=== PATIENT | male | born 1995 | race Caucasian/White ===

== ENCOUNTER 2024-10-11 11:59 | Outpatient (REF) | payer MEDICAID, SELFPAY ==
--- NOTE | ~2024-10-11 | XR_ITS ---
EXAMINATION: XR CHEST 2 VIEWS HISTORY: SOB COMPARISON: Comparison is made with the prior examination dated 10/13/2019. FINDINGS: PA and lateral views of the chest are submitted. The lungs are expanded and clear. There is no pleural effusion, pneumothorax, or pulmonary vascular congestion. The heart is normal in size. The bones are intact. XR/XR chest 2V IMPRESSION: No acute cardiopulmonary abnormality. Electronically signed by: Mukund Cheatham MD 10/11/2024 12:42 PM [place]
== END 2024-10-11 12:00 | disposition home or self-care (01) ==
LOC: HO.HHCX 11:59
PROVIDERS: Visit Provider Emergency Medicine
DX: R06.02 Shortness of breath (principal); R03.0 Elevated blood-pressure reading, without diagnosis of hypertension
CPT/HCPCS: 71046

== ENCOUNTER → 2024-10-11 12:02 | Outpatient (BNV) | payer SELFPAY | PROVIDERS: Visit Provider Radiology Diagnostic Radiology | DX: R06.02 Shortness of breath (principal) | CPT/HCPCS: 71046 ==

== ENCOUNTER 2024-10-11 12:19 | Outpatient (REF) | payer SELFPAY ==
[2024-10-11 13:31] LABS: MANUAL DIFF FLAG NO
[2024-10-11 13:34] LABS: Basophils Percent Auto 0.3 % (0-2); Eosinophils Percent Auto 0.1 % (0-4); Hematocrit 47.8 % (42.0-52.0); Hemoglobin 15.9 g/dl (14.0-18.0); Imm Gran Abs Auto 0.06 X10*3/uL (0.00-0.03); Imm Gran Pct Auto 0.4 % (0.0-0.4); Lymphocytes Absolute Auto 1.6 X10*3/uL (1.2-4.9); Lymphocytes Percent Auto 11.4 % (20-40); Mean Corpuscular HGB Conc 33.3 g/dl (31.0-36.0); Mean Corpuscular Hemoglobin 29.1 pg (27.0-33.0); Mean Corpuscular Volume 87.5 fL (80.0-98.0); Mean Platelet Volume 10.5 fL (9.4-12.4); Monocytes Absolute Auto 0.7 X10*3/uL (0.1-1.2); Monocytes Percent Auto 5.1 % (2-11); Neutrophils Absolute Auto 11.4 x10*3/uL (2.0-8.3); Neutrophils Percent Auto 82.7 % (45-73); Platelet Count 351 X10*3/uL (160-400); Red Blood Count 5.46 X10*6/uL (4.60-5.80); Red Cell Distribution Width 12.8 % (11.0-16.0); White Blood Count 13.8 X10*3/uL (4.8-10.8)
[2024-10-11 13:45] LABS: Estimated Average Glucose 117 mg/dL; Hemoglobin A1C 154.8354 umol/L; Hemoglobin A1c % 5.7 % (<6.0); Total Hemoglobin (HGBA1C) 4036.9472 umol/L
[2024-10-11 14:06] LABS: Alanine Aminotransferase 20 U/L (0-40); Albumin Level 4.9 g/dL (3.5-5.0); Alkaline Phosphatase 102 U/L (39-117); Anion Gap 12 (12-20); Aspartate Amino Transferase 27 U/L (5-37); Bilirubin Total 0.8 mg/dL (0.0-1.0); Blood Urea Nitrogen 14 mg/dL (9-16); Calcium 9.9 mg/dL (8.4-10.2); Carbon Dioxide 25 mmol/L (22-29); Chloride 104 mmol/L (96-108); Estimated Glomerular Filt Rate > 60; Glucose Random 96 mg/dL (60-115); Potassium 3.8 mmol/L (3.3-5.1); Sodium 137 mmol/L (135-145); Total Protein 9.4 g/dL (6.5-8.0)
[2024-10-11 14:13] LABS: Vitamin B12 380 pg/mL (200-900)
[2024-10-11 14:24] LABS: TSH reflex Free T4 1.15 uIU/mL (0.32-4.0)
--- OUTSIDE RECORDS SUMMARY | 2024-10-11 17:05 | XMS_ITS | Encounter Summary ---
Author Organization [email or web address] Address [address] [facility] [address] [place] [address] Care Team Providers Care Insurance Broker Name Role Phone Santa Pablo [facility] Primary Care Provider [phone] Reason for Visit * Reason Comments Anxiety Shortness of Breath Encounter Details Date Type Department Care Team ([facility] st Contact Info) Description 10/11/2024 9:40 AM EST Office Visit [facility] [address] [place] [address] Alfred Magdaleno MD [address] [place] [address] Anxiety (Primary Dx); Dyspnea, unspecified type; Elevated blood pressure reading in office without diagnosis of hypertension Social History Tobacco Use Types Packs/Day Years Used Date Smoking Tobacco: Some Days Cigarettes Smokeless Tobacco: Never Tobacco Cessation:Ready to Q uit: Not Asked Sex and Gender Information Value Date Recorded Sex Assigned at Male 07/15/2022 10:40 AM EDT Legal Sex Male 10:40 AM EDT Gender Identity Choose not to disclose 10:40 AM EDT Sexual Orientation Straight 07/15/2022 10 :40 AM EDT documented as of this encounter Last Filed Vital Signs Vital Sign Reading Time Taken Comments Blood Pressure 155/85 10/11/2024 11:18 AM EST Pulse 62 10/11/2024 9:56 AM EST Temperature 36.4 ??C (97.6 ??F) 10/11/2024 9:56 AM ES T Respiratory Rate 21 10/11/2024 9:56 AM EST Oxygen Saturation 97% 10/11/2024 9:56 AM EST Inhaled Oxygen Concentration - - Weight 121 kg (266 lb 12.8 oz) 10/11/2024 9:56 A M EST Height - - Body Mass Index 35.03 03/20/2022 12:07 AM EDT documented in this encounter Progress Notes * Alfred Magdaleno MD - 10/11/2024 9:40 AM ESTAssociated Order(s): ECG 12 lead Post-Procedure Diagnose(s): Dyspnea, unspecified type; Elevated blood pressure reading in office without diagnosis of hypertension Subjective Patient ID: Shashi Hamlin is a 29 y.o. adult. HPI Shashi was last seen at [facility] 02/04/2022. He came to [facility] today because of 1 year h/o SOB at rest and on exertion, anxiety. No fever, cough, chest pain, n/v/d. Also wants blood glucose checked. Lives with siste here and also stays in senior living in [facility]. Not employed. Smokes 1 cigarette/day several days/week. Quit smoking weed. The following portions of the chart were reviewed this encounter and updated as appropriate: Review of Systems Constitutional: Negative for fever. Respiratory: Positive for shortness of breath. Cardiovascular: Negative for chest pain. Gastrointestinal: Negative for abdominal pain. Skin: Negative for rash. Neurological: Negative for headaches. Psychiatric/Behavioral: The patient is nervous/anxious. Objective Physical Exam Constitutional: Appearance: Normal appearance. HENT: Right Ear: Tympanic membrane, ear canal and external ear normal. Left Ear: Tympanic membrane, ear canal and external ear normal. Nose: Nose normal. Mouth/Throat: Mouth: Mucous membranes are moist. Pharynx: Oropharynx is clear. Eyes: Conjunctiva/sclera: Conjunctivae normal. Pupils: Pupils are equal, round, and reactive to light. Cardiovascular: Rate and Rhythm: Normal rate and regular rhythm. Heart sounds: No murmur heard. Pulmonary: Effort: Pulmonary effort is normal. Breath sounds: Normal breath sounds. Musculoskeletal: General: Normal range of motion. Cervical back: No tenderness. Skin: Findings: No rash. Neurological: Mental Status: Shashi is alert. Gait: Gait is intact. Psychiatric: Mood and Affect: Mood normal. Behavior: Behavior normal. ECG 12 lead Date/Time: 10/11/2024 11:28 AM Performed by: Alfred Magdaleno MD Authorized by: Alfred Magdaleno MD Previous ECG: Previous ECG: Unavailable Interpretation: Interpretation: normal Rate: ECG rate: 86 ECG rate assessment: normal Rhythm: Rhythm: sinus rhythm QRS: QRS axis: Normal QRS intervals: Normal QRS conduction: normal ST segments: ST segments: Normal T waves: T waves: normal Q waves: Abnormal Q-waves: not present Assessment/Plan Diagnoses and all orders for this visit: Sydnee Castillo from [facility] met with Shashi in exam room. She will arrange counseling. I prescribed hydroxyzine. Rtc if not improving. Dyspnea, unspecified type EKG normal. ?related to anxiety. CXR ordered. Will call pt with report. Rtc if not improving. Elevated blood pressure reading in office without diagnosis of hypertension Lab tests ordered. Will call pt with results. Prescribed home BP monitor. Reviewed BP parameters, given written BP log that includes BP parameters, to keep daily. Call if BP readings are elevated. Other orders - Blood Pressure kit; 1 each 2 times daily. - hydrOXYzine pamoate (Vistaril) 50 MG capsule; Take 1 capsule (50 mg) by mouth every 6 (six) hoursif needed for itching. documented in this encounter Plan of Treatment Upcoming Encounters Date Type Department Care Team (Late st Contact Info) Description 01/07/2025 10:30 AM EDT Office Visit [facility] [address], [place] [phone] [facility] [address] [place] [address] documented as of this encounter Procedures Procedure Name Priority Date/Time Associated Diagnosis Comments TSH W/REFLEX TO FT4 Routine 10/11/2024 1 2:22 PM EST Elevated blood pressure reading in office without diagnosis of hypertension CBC WITH AUTO DIFFERENTIAL Routine 10/11/2024 12:22 PM EST Elevated blood pressure reading in office without diagnosis of hypertension HEMOGLOBIN A1C Routine 10/11/2024 12:22 PM EST Elevated blood pressure reading in office without diagnosis of hypertension VITAMIN B12 Routine 10/11/2024 12:22 PM EST Elevated blood pressure reading in office without diagnosis of hypertension COMPREHENSIVE METABOLIC PANEL Routine 10/11/2024 12:22 PM EST Elevated blood pressure reading in office without diagnosis of hypertension XR CHEST 2 VIEWS Routine 10/11/2024 12:0 2 PM EST Elevated blood pressure reading in office without diagnosis of hypertension documented in this encounter Results * Vitamin B12 (10/11/2024 12:22 PM EST) Pathologist [facility] Vitamin B12 380 200 - 900 pg/mL [facility] Comment:NORMAL 200-900 PG/ML INDETERMINATE 160-199 PG/ML DEFICIENT < 160 PG/ML Blood Venous blood specimen / Unknown 10/11/2024 12:22 PM EST 10/11/2024 1:28 PM EST us Alfred Magdaleno MD LAB BLOOD ORDERABLES Final Resul t Performing Organization Address [facility]/ZIP Co de Phone Number [facility] [address] [place] [phone] * TSH with Reflex to Free T4 (10/11/2024 12:22 PM EST) Pathologist [facility] TSH reflex Free T4 1.15 0.32 - 4.0 uIU/mL [facility] Blood Venous blood specimen / Unknown 10/11/2024 12:22 PM EST 10/11/2024 1:28 PM EST us Alfred Magdaleno MD LAB BLOOD ORDERABLES Final Resul t Performing Organization Address City/[facility]/ZIP Co de Phone Number [facility] [address] [place] [phone] * Hemoglobin A1c (10/11/2024 12:22 PM EST) Pathologist [facility] Hemoglobin A1c 5.7 <6.0 % [facility] Comment:Hemoglobin A1C Refer ence Range Adults: 4.8 - 6.0 % Non diabetic: < 6.0 % Goal: < 7.0 %Additional Action Suggested: > 8.0 %Note: Hemoglobin A1c results are invalid for patients with abnormal amounts of HbF. Blood transfusions may impact the HbA1c concentration in the patient sample. Estimated Average Glucose 117 mg/dL [facility] Comment:eAG = Estimated ave rage glucose which is %A1C expressed asaverage glucose, using the formula of the [id number] Glucose study (ADAG), Diabetes Care, Vol.31,#8,Apr. 2007 Blood Venous blood specimen / Unknown 10/11/2024 12:22 PM EST 10/11/2024 1:28 PM EST us Alfred Magdaleno MD LAB BLOOD ORDERABLES Final Resul t [facility] [address] [place] [phone] * (ABNORMAL) Comprehensive Metabolic Panel (10/11/2024 12:22 PM EST) Sodium 137 135 - 145 mmol/L [facility] Potassium 3.8 3.3 - 5.1 mmol/L [facility] Chloride 104 96 - 108 mmol/L [facility] Carbon Dioxide 25 22 - 29 mmol/L [facility] Anion Gap 12 12 - 20 [facility] Urea Nitrogen (BUN) 14 9 - 16 mg/dL [facility] Creatinine, Serum 1.04 0.5 - 1.4 mg/dL [facility] Estimated Glomerular Filt Rate >60 [facility] Comment:Chronic Kidney Disea se: Estimated GFR < 60 mL/min/[id number] Kidney Disease: Estimated GFR < 15 mL/min/1.73m2 Glucose 96 60 - 115 mg/dL [facility] Calcium 9.9 8.4 - 10.2 mg/dL [facility] Bilirubin, Total 0.8 0.0 - 1.0 mg/dL [facility] Aspartate Amino Transferase 27 5 - 37 U/L [facility] Alanine Aminotransferase 20 0 - 40 U/L [facility] Total Protein 9.4(H) 6.5 - 8.0 g/dL [facility] Albumin Level 4.9 3.5 - 5.0 g/dL [facility] Alkaline Phosphatase 102 39 - 117 U/L [facility] Blood Venous blood specimen / Unknown 10/11/2024 12:22 PM EST 10/11/2024 1:28 PM EST us Alfred Magdaleno MD LAB BLOOD ORDERABLES Final Resul t [facility] [address] [place] [phone] * (ABNORMAL) CBC auto differential (10/11/2024 12:22 PM EST) White Blood Count 13.8(H) 4.8 - 10.8 X10*3/uL [facility] Red Blood Count 5.46 4.60 - 5.80 X10*6/uL [facility] Hemoglobin 15.9 14.0 - 18.0 g/dl [facility] Hematocrit 47.8 42.0 - 52.0 % [facility] Mean Corpuscular Volume 87.5 80.0 - 98.0 fL [facility] Mean Corpuscular Hemoglobin 29.1 27.0 - 33.0 pg [facility] Mean Corpuscular HGB Conc 33.3 31.0 - 36.0 g/dl [facility] Red Cell Distribution Width 12.8 11.0 - 16.0 % [facility] Platelet Count 351 160 - 400 X10*3/uL [facility] Mean Platelet Volume 10.5 9.4 - 12.4 fL [facility] Neutrophils Percent Auto 82.7(H) 45 - 73 % [facility] Imm Gran Pct Auto 0.4 0.0 - 0.4 % [facility] Lymphocytes Percent Auto 11.4(L) 20 - 40 % [facility] Monocytes Percent Auto 5.1 2 - 11 % [facility] Eosinophils Percent Auto 0.1 0 - 4 % [facility] Basophils Percent Auto 0.3 0 - 2 % [facility] NRBC Pct Auto 0.0 0.0 - 0.2 /100WBC [facility] Neutrophils Absolute Auto 11.4(H) 2.0 - 8.3 x10*3/uL [facility] Imm Gran Abs Auto 0.06(H) 0.00 - 0.03 X10*3/uL [facility] Lymphocytes Absolute Auto 1.6 1.2 - 4.9 X10*3/uL [facility] Monocytes Absolute Auto 0.7 0.1 - 1.2 X10*3/uL [facility] Eosinophils Absolute Auto 0.0 0.0 - 0.4 X10*3/uL [facility] Basophils Absolute Auto 0.0 0.0 - 0.2 X10*3/uL [facility] NRBC Abs Auto 0.000 0.0 - 0.012 X10*3/uL [facility] Blood Venous blood specimen / Unknown 10/11/2024 12:22 PM EST 10/11/2024 1:28 PM EST us Alfred Magdaleno MD LAB BLOOD ORDERABLES Final Resul t [facility] [address] [place] [phone] * XR Chest 2 Views (10/11/2024 12:02 PM EST) Anatomical Region Laterality Modality Chest Radiographic Allison ging 10/11/2024 12:0 2 PM EST Narrative 10/11/2024 12:45 PM EST ?[facility] ?[address] ?[place] [address] ?XRay Report ? Signed ? Patient: Boubacar Gaona,Shashi ?MR#: ?? [id number] ? : 1995 ?Acct:[id number] ? Age/Sex: 29 / M ?ADM Date: 01/27/25 ? Loc: HO.HHCX ? Attending Dr: Alfred Magdaleno MD ? Ordering Physician: ALFRED MAGDALENO MD ?? Date of Service: 10/11/24 ?? Procedure(s): XR chest 2V ?? Accession Number(s): [id number] ? cc: ALFRED MAGDALENO MD ? EXAMINATION: ??XR CHEST 2 VIEWS ? HISTORY: SOB ? COMPARISON: Comparison is made with the prior examination dated ?? 10/13/2019. ? FINDINGS: ??PA and lateral views of the chest are submitted. The lungs ?? are expanded and clear. ??There is no pleural effusion, pneumothorax, or ?? pulmonary vascular congestion. ??The heart is normal in size. ??The bones ?? are intact. ? XR/XR chest 2V ?? IMPRESSION: ?? No acute cardiopulmonary abnormality. ? Electronically signed by: ??Mukund Cheatham MD ??10/11/2024 12:42 PM EST ?? RP ? Dictated By: ?Mukund Cheatham MD ? Signed By: ?<Electronically signed by Mukund Cheatham MD in OV> ?10/11/24 1242 ? DD/ 1202 ? TD/TT: 10/11/24 1215 ? Research Assistant Professor: ? Procedure Note Malvin, Image - 10/11/[address] [address] XRay Report Signed Patient: Adolph Blackman#: [id number] : 1995Acct:[id number] Age/Sex: 29 / MADM Date: 10/11/24 Loc: HO.HHCX Attending Dr: Alfred Magdaleno MD Ordering Physician: ALFRED MAGDALENO MD Date of Service: 10/11/24 Procedure(s): XR chest 2V Accession Number(s): [id number] cc: ALFRED MAGDALENO MD EXAMINATION: XR CHEST 2 VIEWS HISTORY: SOB COMPARISON: Comparison is made with the prior examination dated 10/13/2019. FINDINGS: PA and lateral views of the chest are submitted. The lungs are expanded and clear. There is no pleural effusion, pneumothorax, or pulmonary vascular congestion. The heart is normal in size. The bones are intact. XR/XR chest 2V IMPRESSION: No acute cardiopulmonary abnormality. Electronically signed by: Mukund Cheatham MD 10/11/2024 12:42 PM [facility] Dictated By: Mukund Cheatham MD Signed By: <Electronically signed by Mukund Cheatham MD in OV> 10/11/24 1242 DD/ 1202 TD/TT: 10/11/24 1215 Research Assistant Professor: Alfred Magdaleno MD IMG XR PROCEDURES Final Result documented in this encounter Visit Diagnoses Diagnosis Anxiety- Primary Anxiety state, unspecified Dyspnea, unspecified type Elevated blood pressure reading in office without diagnosis of hypertension documented in this encounter Care Teams Insurance Broker Relationship Specialty Start Date End Date Santa Pablo FNP [address] [place] [phone] PCP - General Family Medicine 03/20/22 documented as of this encounter
--- OUTSIDE RECORDS SUMMARY | 2024-10-11 17:05 | XMS_ITS | Clinical Summary ---
Author Organization [employer] Address [address] [facility] 7t [place] [address] Care Team Providers Care Tool And Cutter Grinder Name Role Phone Santa Pablo [facility] Primary Care Provider [phone] Allergies No known active allergies Medications Blood Pressure kit 1 each 2 times daily. 1 kit 10/11/2024 Active hydrOXYzine pamoate (Vistaril) 50 MG capsule Take 1 capsule (50 mg) by mouth every 6 (six) hours if needed for itching. 30 capsule 1 10/11/2024 Active Active Problems No known active problems Encounters Date Type Department Care Team Description 10/11/2024 9:40 AM EST Office Visit [facility] [address] [place] [address] Alfred Magdaleno MD Anxiety (Primary Dx); Dyspnea, unspecified type; Elevated blood pressure reading in office without diagnosis of hypertension from Last 3 Months Social History Tobacco Use Types Packs/Day Years Used Date Smoking Tobacco: Some Days Cigarettes Smokeless Tobacco: Never Tobacco Cessation:Ready to Q uit: Not Asked Sex and Gender Information Value Date Recorded Sex Assigned at Male 07/15/2022 10:40 AM EDT Legal Sex Male 10:40 AM EDT Gender Identity Choose not to disclose 10:40 AM EDT Sexual Orientation Straight 07/15/2022 10 :40 AM EDT Last Filed Vital Signs Vital Sign Reading [...] oz) 10/11/2024 9:56 A M EST Height 185.9 cm (6' 1.18 ) 03/20/2022 12:07 AM E DT Body Mass Index 35.03 03/20/2022 12:07 AM EDT Plan of Treatment Upcoming Encounters Date Type Department Care Team (Late st Contact Info) Description 01/07/2025 10:30 AM EDT Office Visit [facility] [address] [place] [address] [place], [place], [facility] [address] [place], [place] [phone] Health Maintenance Due Date Last Done Comments Depression Screening 1994 HIV Screening 1994 Lipid Panel 1994 SDOH Screening 1994 Pneumococcal Vaccine: Pediat rics (0 to 5 Years) and At-Risk Patients (6 to 64 Years) (1 of 2 - PCV) 2000 Alcohol/Substance Use Screening 2006 Family Planning (PISQ) 2009 Hepatitis C Screening 2012 DTaP/Tdap/Td Vaccines (1 - Tdap) 2013 Hepatitis B Vaccines (1 of 3 - 19+ 3-dose series) 2013 COVID-19 Vaccine (1 - 2023-2 5 season) 2024 Influenza Vaccine (#1) 2024 Diabetes: Hemoglobin A1C 10/11/2025 10/11/2024 Tobacco Screening 10/11/2025 10/11/2024 Zoster Vaccines (1 of 2) 2044 RSV Patients and Pa tients Aged 60 years or older (1 - 1-dose 75+ series) 2069 HIB Vaccines Aged Out No longer eligi ble based on patient's age to complete this topic HPV Vaccines Aged Out No longer eligi ble based on patient's age to complete this topic Hepatitis A Vaccines Aged Out No long er eligible based on patient's age to complete this topic IPV Vaccines Aged Out No longer eligi ble based on patient's age to complete this topic Meningococcal Vaccine Aged Out No yoly supriya eligible based on patient's age to complete this topic RSV under 20 months Aged Out No longe r eligible based on patient's age to complete this topic Rotavirus Vaccines Aged Out No longer eligible based on patient's age to complete this topic Procedures Procedure Name Priority Date/Time Associated Diagnosis Comments VITAMIN B12 Routine 10/11/2024 12:22 PM EST Elevated blood pressure reading in office without diagnosis of hypertension TSH W/REFLEX TO FT4 Routine 10/11/2024 1 [...] reading in office without diagnosis of hypertension from Last 3 Months Results * TSH with Reflex to Free T4 (10/11/2024 12:22 PM EST) TSH reflex Free T4 1.15 0.32 - 4.0 uIU/mL [facility] Blood Venous blood specimen / Unknown 10/11/2024 12:22 PM EST 10/11/2024 1:28 PM EST us Alfred Magdaleno MD LAB BLOOD ORDERABLES Final Resul t [facility] [address] [place] [phone] * (ABNORMAL) CBC auto differential (10/11/2024 12:22 PM EST) White Blood Count 13.8(H) 4.8 - 10.8 X10*3/uL [facility] Red Blood Count 5.46 4.60 - 5.80 X10*6/uL [facility] Hemoglobin 15.9 14.0 - 18.0 g/dl [facility] Hematocrit 47.8 42.0 - 52.0 % [facility] Mean Corpuscular Volume 87.5 80.0 - 98.0 fL [facility] Mean Corpuscular Hemoglobin 29.1 27.0 - 33.0 pg [facility] Mean Corpuscular HGB Conc 33.3 31.0 - 36.0 g/dl [facility] Red Cell Distribution Width 12.8 11.0 - 16.0 % [facility] Platelet Count 351 160 - 400 X10*3/uL [facility] Mean Platelet Volume 10.5 9.4 - 12.4 fL [facility] Neutrophils Percent Auto 82.7(H) 45 - 73 % [facility] Imm Gran Pct Auto 0.4 0.0 - 0.4 % [facility] Lymphocytes Percent Auto 11.4(L) 20 - 40 % [facility] Monocytes Percent Auto 5.1 2 - 11 % [facility] Eosinophils Percent Auto 0.1 0 - 4 % [facility] Basophils Percent Auto 0.3 0 - 2 % [facility] NRBC Pct Auto 0.0 0.0 - 0.2 /100WBC [facility] Neutrophils Absolute Auto 11.4(H) 2.0 - 8.3 x10*3/uL [facility] Imm Gran Abs Auto 0.06(H) 0.00 - 0.03 X10*3/uL [facility] Lymphocytes Absolute Auto 1.6 1.2 - 4.9 X10*3/uL [facility] Monocytes Absolute Auto 0.7 0.1 - 1.2 X10*3/uL [facility] Eosinophils Absolute Auto 0.0 0.0 - 0.4 X10*3/uL [facility] Basophils Absolute Auto 0.0 0.0 - 0.2 X10*3/uL [facility] NRBC Abs Auto 0.000 0.0 - 0.012 X10*3/uL [facility] Blood Venous blood specimen / Unknown 10/11/2024 12:22 PM EST 10/11/2024 1:28 PM EST us Alfred Magdaleno MD LAB BLOOD ORDERABLES Final Resul t Performing Organization Address [facility] de Phone Number [facility] [address] [place] [address] [phone] * Hemoglobin A1c (10/11/2024 12:22 PM EST) Hemoglobin A1c 5.7 <6.0 % [facility] Comment:Hemoglobin A1C Refer ence Range Adults: 4.8 - 6.0 % Non diabetic: < 6.0 % Goal: < 7.0 %Additional Action Suggested: > 8.0 %Note: Hemoglobin A1c results are invalid for patients with abnormal amounts of HbF. Blood transfusions may impact the HbA1c concentration in the patient sample. Estimated Average Glucose 117 mg/dL [facility] Comment:eAG = Estimated ave rage glucose which is %A1C expressed asaverage glucose, using the formula of the G6I-TjgjodcKechqie Glucose study (ADAG), Diabetes Care, Vol.31,#8,Apr. 2007 Blood Venous blood specimen / Unknown 10/11/2024 12:22 PM EST 10/11/2024 1:28 PM EST us Alfred Magdaleno MD LAB BLOOD ORDERABLES Final Resul t Performing Organization Address City/[facility]/ZIP Co de Phone Number [facility] [address] [place] [phone] [phone] * Vitamin B12 (10/11/2024 12:22 PM EST) Vitamin B12 380 200 - 900 pg/mL [facility] Comment:NORMAL 200-900 PG/ML INDETERMINATE 160-199 PG/ML DEFICIENT < 160 PG/ML Blood Venous blood specimen / Unknown 10/11/2024 12:22 PM EST 10/11/2024 1:28 PM EST us Alfred Magdaleno MD LAB BLOOD ORDERABLES Final Resul t Performing Organization Address City/[facility]/ZIP Co de Phone Number [facility] [address] [place] [phone] [phone] * (ABNORMAL) Comprehensive Metabolic Panel (10/11/2024 12:22 PM EST) Sodium 137 135 - 145 mmol/L [facility] Potassium 3.8 3.3 - 5.1 mmol/L [facility] Chloride 104 96 - 108 mmol/L [facility] Carbon Dioxide 25 22 - 29 mmol/L [facility] Anion Gap 12 12 - 20 [facility] Urea Nitrogen (BUN) 14 9 - 16 mg/dL [facility] Creatinine, Serum 1.04 0.5 - 1.4 mg/dL [facility] Estimated Glomerular Filt Rate >60 [facility] Comment:Chronic Kidney Disea se: Estimated GFR < 60 mL/min/1.05s9Gkucar Kidney Disease: Estimated GFR < 15 mL/min/1.73m2 Glucose 96 60 - 115 mg/dL [facility] Calcium 9.9 8.4 - 10.2 mg/dL [facility] Bilirubin, Total 0.8 0.0 - 1.0 mg/dL [facility] Aspartate Amino Transferase 27 5 - 37 U/L [facility] Alanine Aminotransferase 20 0 - 40 U/L [facility] Total Protein 9.4(H) 6.5 - 8.0 g/dL [facility] Albumin Level 4.9 3.5 - 5.0 g/dL [facility] Alkaline Phosphatase 102 39 - 117 U/L [facility] Blood Venous blood specimen / Unknown 10/11/2024 12:22 PM EST 10/11/2024 1:28 PM EST Alfred Magdaleno MD LAB BLOOD ORDERABLES Final Resul t [facility] [address] [place] [phone] * XR Chest 2 Views (10/11/2024 12:02 PM EST) Anatomical Region Laterality Modality Chest Radiographic Allison ging 10/11/2024 12:0 2 PM EST Narrative 10/11/2024 12:45 PM EST ?[facility] ?[address] ?[place] [address] ?XRay Report ? Signed ? Patient: Shashi Blackman ?MR#: ?? [id number] ? : 1995 ?Acct:[id number] ? Age/Sex: 29 / M ?ADM Date: 10/11/24 ? Loc: HO.HHCX ? Attending Dr: Alfred Magdaleno MD ? Ordering Physician: ALFRED MAGDALENO MD ?? Date of Service: 10/11/24 ?? Procedure(s): XR chest 2V ?? Accession Number(s): [id number] ? cc: ALFRED MAGDALENO MD ? EXAMINATION: [...] ??Mukund Cheatham MD ??10/11/2024 12:42 PM EST ? Dictated By: ?Mukund Cheatham MD ? Signed By: ?<Electronically signed by Mukund Cheatham MD in OV> ?10/11/24 1242 ? DD/ 1202 ? TD/TT: 10/11/24 1215 ? Recyclable Materials Collector: ? Procedure Note Malvin, Michelle - 10/11/2024 [facility] [address] [facility] [place] [address] XRay Report Signed Patient: Adolph Blackman#: [id number] : 1995Acct:[id number] Age/Sex: 29 / MADM Date: 10/11/24 Loc: HO.HHCX Attending Dr: Alfred Magdaleno MD Ordering Physician: ALFRED MAGDALENO MD Date of Service: 10/11/24 Procedure(s): XR chest 2V Accession Number(s): [id number] cc: ALFRED MAGDALENO MD EXAMINATION: XR CHEST [...] by: Mukund Cheatham MD 10/11/2024 12:42 PM EST Dictated By: Mukund Cheatham MD Signed By: <Electronically signed by Mukund Cheatham MD in OV> 10/11/24 1242 DD/ 1202 TD/TT: 10/11/24 1215 Recyclable Materials Collector: Alfred Magdaleno MD IMG XR PROCEDURES Final Result from Last 3 Months Insurance [facility] C3 Care Teams Tool And Cutter Grinder Relationship Specialty Start Date End Date Santa Pablo FNP [address] [place] [phone] PCP - General Family Medicine 03/20/22
== END 2024-10-11 12:20 | disposition home or self-care (01) ==
LOC: HO.HHCL 12:19
PROVIDERS: Visit Provider Emergency Medicine
DX: R03.0 Elevated blood-pressure reading, without diagnosis of hypertension (principal); Z13.1 Encounter for screening for diabetes mellitus
CPT/HCPCS: 36415; 80053; 82607; 83036; 84443; 85025

== ENCOUNTER 2024-10-22 13:39 | Outpatient (REF) | payer SELFPAY ==
--- OUTSIDE RECORDS SUMMARY | 2024-10-22 14:03 | XMS_ITS | Encounter Summary ---
Author Organization [employer] Address [address] [place] [address] Care Team Providers Care Composition Mixer Name Role Phone Santa Pablo [facility] Primary Care Provider [phone] Encounter Details Date Type Department Care Team (Latest Contact Info) Description 10/22/2024 Travel Social History Tobacco Use Types Packs/Day Years Used Date Smoking Tobacco: Some Days Cigarettes Smokeless Tobacco: Never Housing Stability Answer Date Recorded What is your housing situation today? I have darius spivey 10/22/[address] you li ve. Do you have problems with any of the following? None of the above 10/22/2024 Food Insecurity Answer Date Recorded Within the past 12 months, y ou worried that your food would run out before you got money to buy more: Never True 10/22/2024 Within the past 12 months,th e food you bought just didn't last and you didn't have enough money to get more: Never True 03/2025 Transportation Answer Date Recorded In the past 12 months, has l ack of transportation kept you from medical appts, meetings, work or from getting things needed for daily living? No 10/22/2024 Utilities Answer Date Recorded In the past 12 months, has t he electric, gas, oil or water company threatened to shut off services in your home? No 10/22/2024 Internet Access Answer Date Recorded Internet Access Q1 Yes 10/22/2024 Internet Access Q2 Not on file 10/22/2024 Sex and Gender Information Value Date Recorded Sex Assigned at Male 07/15/2022 10:40 AM EDT Legal Sex Male 10:40 AM EDT Gender Identity Choose not to disclose 10:40 AM EDT Sexual Orientation Straight 07/15/2022 10 :40 AM EDT documented as of this encounter Plan of Treatment Upcoming Encounters Date Type Department Care Team (Late st Contact Info) Description 01/07/2025 10:30 AM EDT Office Visit [facility] [address] [place] [address] Santa Pablo FNP [address] [place] [address] documented as of this encounter Visit Diagnoses Not on filedocumented in this encounter Care Teams Composition Mixer Relationship Specialty Start Date End Date Santa Pablo FNP [address] [place] [phone] PCP - General Family Medicine 03/20/22 documented as of this encounter
--- OUTSIDE RECORDS SUMMARY | 2024-10-22 14:03 | XMS_ITS | Encounter Summary ---
Author Organization [employer] [facility] Address [address] [facility] [address] [place] [address] Care Team Providers Care Wind Instrument Repairer Name Role Phone Santa Pablo [facility] Primary Care Provider [phone] Encounter Details Date Type Department Care Team (Latest Contact Info) Description 10/19/2024 Travel Social History Tobacco Use Types Packs/Day Years Used Date Smoking Tobacco: Some Days Cigarettes Smokeless Tobacco: Never Sex and Gender Information Value Date Recorded [...] Description 01/07/2025 10:30 AM EDT Office Visit [facility] [address] [place] [address] Bev [facility] [address] [place] [address] documented as of this encounter Visit Diagnoses Not on filedocumented in this encounter Care Teams Wind Instrument Repairer Relationship Specialty Start Date End Date Bev Santa [facility] [address] [place] [address] PCP - General Family Medicine 03/20/22 documented as of this encounter
--- OUTSIDE RECORDS SUMMARY | 2024-10-22 14:03 | XMS_ITS | Encounter Summary ---
Author Organization [employer] Address [address] [facility] [address] [place] [address] Care Team Providers Care Inside Trucker Name Role Phone Santa Pablo [facility] Primary Care Provider [phone] Reason for Visit * Reason Comments sick visit Encounter Details Date Type Department Care Team ([facility] st Contact Info) Description 10/22/2024 11:45 AM EST Office Visit [facility] [address] [place] [address] [facility] [address] [place] [address] Anxiety (Primary Dx); Poor appetite; Routine screening for STI (sexually transmitted infection) Social History Tobacco Use Types Packs/Day Years Used Date Smoking Tobacco: Some Days Cigarettes Smokeless Tobacco: Never Tobacco Cessation:Ready to Q uit: Not Asked; Counseling Given: Not Answered Housing Stability Answer Date Recorded What is [...] Sign Reading Time Taken Comments Blood Pressure 120/88 10/22/2024 1:01 PM EST Pulse 88 10/22/2024 12:29 PM EST Temperature 36.3 ??C (97.4 ??F) 10/22/2024 12:[address] Respiratory Rate 20 10/22/2024 12:29 PM EST Oxygen Saturation 98% 10/22/2024 12:29 PM EST Inhaled Oxygen Concentration - - Weight 120 kg (264 lb 6.4 oz) 10/22/2024 12:29 P M EST Height 188 cm (6' 2 ) 10/22/2024 12:29 PM EST Body Mass Index 33.95 10/22/2024 12:29 PM EST documented in this encounter Plan of Treatment Upcoming Encounters Date Type Department Care Team (Late st Contact Info) Description 01/07/2025 10:30 AM EDT Office Visit [facility] [address] [place] [address] [facility] [address] [place] [address] Scheduled Orders Name Type Priority Associated Diagnoses Orde r Schedule CBC auto differential Lab Routine Poor appetite Expected: 10/22/2024 (Approximate), Expires: 10/22/2025 Comprehensive Metabolic Panel Lab Routine Poor appetite Expected: 10/22/2024 (Approximate), Expires: 10/22/2025 HIV-1/2 Antigen and Antibodies, Fourth Generation, with Reflexes Lab Routine Routine screening for STI (sexually transmitted infection) Expected: 10/22/2024 (Approximate), Expires: 10/22/2025 Hepatitis A,B,C Profile Lab Routine Routine screening for STI (sexually transmitted infection) Expected: 10/22/2024, Expires: 10/22/2025 Syphilis Screen Lab Routine Routine screening for STI (sexually transmitted infection) Expected: 10/22/2024, Expires: 10/22/2025 documented as of this encounter Visit Diagnoses Diagnosis Anxiety- Primary Anxiety state, unspecified Poor appetite Anorexia Routine screening for STI (sexually transmitted infection) Screening examination for venereal disease documented in this encounter Care Teams Inside Trucker Relationship Specialty Start Date End Date Santa Pablo FNP [address] [place] [phone] PCP - General Family Medicine 03/20/22 documented as of this encounter
--- OUTSIDE RECORDS SUMMARY | 2024-10-22 14:03 | XMS_ITS | Encounter Summary ---
Author Organization [employer] Address [address] [place] [address] Care Team Providers Care Direct Care Provider Name Role Phone BevSanta WELL DRILL OPERATOR Primary Care Provider [phone] Reason for Visit * Reason Onset Date Comments Results 10/14/2024 Encounter Details Date Type Department Care Team ([facility] st Contact Info) Description 10/14/2024 Telephone [facility] [address] [place] [address] Sola Patton RN Results Social History Tobacco Use Types Packs/Day Years Used Date Smoking Tobacco: Some Days Cigarettes Smokeless Tobacco: Never Sex and Gender Information Value Date Recorded Sex Assigned at Male 07/15/2022 10:40 AM EDT Legal Sex Male 10:40 AM EDT Gender Identity Choose not to disclose 10:40 AM EDT Sexual Orientation Straight 07/15/2022 10 :40 AM EDT documented as of this encounter Miscellaneous Notes * Telephone Encounter - Sola Patton RN - 10/14/2024 11:52 AM EST Call returned to patient. Informed patient that his chest x-ray was read as no acute cardiopulmonary abnormalities. Per Dr. Gomez - his lab work looked ok. His A1c was 5.7% which puts him into the prediabetic category. Advised patient he can improve this with exercise, weight loss, and avoiding concentrated sweets. Patient reports he has stopped smoking since visit - congratulated patient. He also has started exercising - walking, push-ups, pull-ups, handstands. Has stopped eating sweets and reports he has switched from sugary beverages to seltzer water/ diet beverages. Reports he wants to get his health back on track. Advised patient that he has new patient appointment with Santa RISK MANAGEMENT PROFESSIONAL on 01/07/2025 at 10:30 AM. All questions answered. Patient verbalizes understanding and agreement with plan of care at this time. documented in this encounter Plan of Treatment Upcoming Encounters Date Type Department Care Team (Late st Contact Info) Description 01/07/2025 10:30 AM EDT Office Visit [facility] [address] [place] [address] Santa Pablo FNP [address] [place] [address] documented as of this encounter Visit Diagnoses Not on filedocumented in this encounter Care Teams Direct Care Provider Relationship Specialty Start Date End Date Santa Pablo FNP [address] [place] [phone] PCP - General Family Medicine 03/20/22 documented as of this encounter
--- OUTSIDE RECORDS SUMMARY | 2024-10-22 14:03 | XMS_ITS | Encounter Summary ---
Author Organization [employer] Address [address] [place] [address] Care Team Providers Care A&P Mechanic Name Role Phone Bev [facility] Primary Care Provider [phone] Reason for Visit * Reason Onset Date Comments Results 10/12/2024 Encounter Details Date Type Department Care Team ([facility] st Contact Info) Description 10/12/2024 Telephone [facility] [address] [place] [address] Alfred Gomez MD [address] [place] [address] Results Social History Tobacco Use Types Packs/Day [...] encounter Miscellaneous Notes * Telephone Encounter - Demond Rebolledo - 10/14/2024 10:44 AM EST Tc from pt returning call regarding prior message. Contact pt at [phone] * Telephone Encounter - Alfred Gomez MD - 10/12/2024 1:13 PM EST I tried calling Shashi to notify him of lab test and CXR results, but the # was not in service . documented in this encounter Plan of Treatment Upcoming Encounters Date Type Department Care Team (Late st Contact Info) Description 01/07/2025 10:30 AM EDT Office Visit [facility] [address] [place] [address] Santa Pablo FNP [address] [place] [address] documented as of this encounter Visit Diagnoses Not on filedocumented in this encounter Care Teams A&P Mechanic Relationship Specialty Start Date End Date Santa Pablo FNP [address] [place] [phone] PCP - General Family Medicine 03/20/22 documented as of this encounter
--- OUTSIDE RECORDS SUMMARY | 2024-10-22 14:03 | XMS_ITS | Clinical Summary ---
Author Organization [employer] Address [address] [facility] 7[address] [place] [address] Care Team Providers Care Co Director Name Role Phone Santa Pablo [facility] Primary Care Provider [phone] Allergies No known active allergies Medications * This document contains information received from the source organization and may not represent a complete record from that organization. Blood Pressure kit 1 each 2 times daily. 1 kit 10/11/2024 6 Active hydrOXYzine pamoate (Vistaril) 50 MG capsule Take 1 capsule (50 mg) by mouth every 6 (six) hours if needed for itching. 30 capsule 1 10/11/2024 Active escitalopram (Lexapro) 5 MG tabletIndicatio ns:Anxiety Take 1 tablet (5 mg) by mouth Once per day. 30 tablet 2 10/22/2024 5 Active Active Problems Problem Noted Date Diagnosed Date Severe anxiety 10/11/2024 Assessment & Plan (10/12/2024 11:39 AM EST): During [facility] Consult Shashi presenting with excessive worry/anxiety, difficulty controlling worry, anxiety/worry associated to restlessness and/or feeling keyed-up/On edge , easily fatigued , difficulty concentrating and/or mind going blank , irritability, muscle tension , and sleep disturbance difficulty falling asleep, Fear , and sense of dread ; for a period of 6-12 mo, for most or all symptoms in the context of financial concern, illness or family illness, and housing. Shashi reported feeling very anxious. His sxs are associated with his current living situation. Pt is homeless and lives in a usp in [place]. His sister who lives in [place] is his only support, as most of his family lives in the [place]. Barriers for treatment identified as difficulty sharing his emotions with others and seeking out for support. clinician engaged patient with active/reflective listening. Reviewed and assessed for risk, current stressors and protective factors using open-ended questions. Practiced grounding techniques to decrease anxiety (5,4,3,2,1) and provided toolkit for anxiety. Pt will start medication for sxs prescribed by PCP (see PCP note). clinician will follow-up and provide additional support during his next medical appointment. Lives in homeless usp 10/11/2024 Encounters * This document contains information received from the source organization and may not represent a complete record from that organization. Date Type Department Care Team Description 10/22/2024 11:45 AM EST Office Visit [facility] [address] [place] [address] Santa Pablo FNP Anxiety (Primary Dx); Poor appetite; Routine screening for STI (sexually transmitted infection) 10/22/2024 Travel 10/19/2024 Travel 10/18/[address] [address] Santa Pablo FNP Nurse Triage 10/14/2024 Telephone [facility] [address] [place] [phone] Sola Patton RN Results 10/12/2024 Telephone [facility] [address] [place] [phone] Alfred Magdaleno MD Results 10/11/2024 9:40 AM EST Office Visit [facility] [address] [place] [phone] Alfred Magdaleno MD Anxiety (Primary Dx); Dyspnea, [...] Mass Index 33.95 10/22/2024 12:29 PM EST Plan of Treatment Upcoming Encounters Date Type Department Care Team (Late st Contact Info) Description 01/07/2025 10:30 AM EDT Office Visit [facility] [address] [place] [address] [facility] [address] [place] [address] Health Maintenance Due Date Last Done Comments Depression Screening 1994 HIV Screening 1994 Lipid Panel 1994 Alcohol/Substance Use Screening 2006 Family Planning (PISQ) 2009 Hepatitis C Screening 2012 DTaP/Tdap/Td Vaccines (1 - Tdap) 2013 Hepatitis A Vaccines (1 of 2 - Risk 2-dose series) 2013 Hepatitis B Vaccines (1 of 3 - 19+ 3-dose series) 2013 Pneumococcal Vaccine: Pediat rics (0 to 5 Years) and At-Risk Patients (6 to 49) Years) (1 of 2 - PCV) 2013 COVID-19 Vaccine (1 - 2023-2 5 season) 2024 Influenza Vaccine (#1) 2024 Diabetes: Hemoglobin A1C 10/11/2025 10/11/2024 SDOH Screening 10/22/2025 10/22/2024 Tobacco Screening 10/22/2025 10/22/2024 Zoster Vaccines (1 of 2) 2044 RSV [...] Free T4 (10/11/2024 12:22 PM EST) Pathologist [facility] TSH reflex Free T4 1.15 0.32 - 4.0 uIU/mL [facility] Blood Venous blood specimen / Unknown 10/11/2024 12:22 PM EST 10/11/2024 1:28 PM EST Alfred Magdaleno MD LAB BLOOD ORDERABLES Final Resul t [facility] [address] [place] [phone] * (ABNORMAL) CBC auto differential (10/11/2024 12:22 PM EST) Pathologist [facility] White Blood Count 13.8(H) 4.8 - 10.8 X10*3/uL [facility] Red Blood Count 5.46 4.60 - 5.80 X10*6/uL [facility] Hemoglobin 15.9 14.0 - 18.0 g/dl [facility] Hematocrit 47.8 42.0 - 52.0 % [facility] Mean Corpuscular Volume 87.5 80.0 - 98.0 fL [facility] Mean Corpuscular Hemoglobin 29.1 27.0 - 33.0 pg [facility] Mean Corpuscular HGB Conc 33.3 31.0 - 36.0 g/dl [facility] Red Cell Distribution Width 12.8 11.0 - 16.0 % [facility] Platelet Count 351 160 - 400 X10*3/uL [facility] Mean Platelet Volume 10.5 9.4 - 12.4 fL [facility] Neutrophils Percent Auto 82.7(H) 45 - 73 % [facility] Imm Gran Pct Auto 0.4 0.0 - 0.4 % [facility] Lymphocytes Percent Auto 11.4(L) 20 - 40 % [facility] Monocytes Percent Auto 5.1 2 - 11 % [facility] Eosinophils Percent Auto 0.1 0 - 4 % [facility] Basophils Percent Auto 0.3 0 - 2 % [facility] NRBC Pct Auto 0.0 0.0 - 0.2 /100WBC [facility] Neutrophils Absolute Auto 11.4(H) 2.0 - 8.3 x10*3/uL [facility] Imm Gran Abs Auto 0.06(H) 0.00 - 0.03 X10*3/uL [facility] Lymphocytes Absolute Auto 1.6 1.2 - 4.9 X10*3/uL [facility] Monocytes Absolute Auto 0.7 0.1 - 1.2 X10*3/uL [facility] Eosinophils Absolute Auto 0.0 0.0 - 0.4 X10*3/uL [facility] Basophils Absolute Auto 0.0 0.0 - 0.2 X10*3/uL [facility] NRBC Abs Auto 0.000 0.0 - 0.012 X10*3/uL [facility] Blood Venous blood specimen / Unknown 10/11/2024 12:22 PM EST 10/11/2024 1:28 PM EST us Alfred Magdaleno MD LAB BLOOD ORDERABLES Final Resul t [facility] [address] [place] [address] [phone] * Hemoglobin A1c (10/11/2024 12:22 PM EST) Hemoglobin A1c 5.7 <6.0 % [facility] Comment:Hemoglobin A1C Refer ence Range Adults: 4.8 - 6.0 % Non diabetic: < 6.0 % Goal: < 7.0 %Additional Action Suggested: > 8.0 %Note: Hemoglobin A1c results are invalid for patients with abnormal amounts of HbF. Blood transfusions may impact the HbA1c concentration in the patient sample. Estimated Average Glucose 117 mg/dL [facility] Comment:eAG = Estimated ave rage glucose which is %A1C expressed asaverage glucose, using the formula of the T4V-MkljhtuJlozhxu Glucose study (ADAG), Diabetes Care, Vol.31,#8,Apr. 2007 Blood Venous blood specimen / Unknown 10/11/2024 12:22 PM EST 10/11/2024 1:28 PM EST us Alfred Magdaleno MD LAB BLOOD ORDERABLES Final Resul t Performing Organization Address [facility] Co de Phone Number [facility] [address] [place] [phone] * Vitamin B12 (10/11/2024 12:22 PM EST) Vitamin B12 380 200 - 900 pg/mL [facility] Comment:NORMAL 200-900 PG/ML INDETERMINATE 160-199 PG/ML DEFICIENT < 160 PG/ML Blood Venous blood specimen / Unknown 10/11/2024 12:22 PM EST 10/11/2024 1:28 PM EST us Alfred Magdaleno MD LAB BLOOD ORDERABLES Final Resul t Performing Organization Address [facility] Co de Phone Number [facility] [address] [place] [phone] * (ABNORMAL) Comprehensive Metabolic Panel (10/11/2024 12:22 PM EST) Sodium 137 135 - 145 mmol/L [facility] Potassium 3.8 3.3 - 5.1 mmol/L [facility] Chloride 104 96 - 108 mmol/L [facility] Carbon Dioxide 25 22 - 29 mmol/L [facility] Anion Gap 12 12 - 20 [facility] Urea Nitrogen (BUN) 14 9 - 16 mg/dL [facility] Creatinine, Serum 1.04 0.5 - 1.4 mg/dL [facility] Estimated Glomerular Filt Rate >60 [facility] Comment:Chronic Kidney Disea se: Estimated GFR < 60 mL/min/1.66z1Pjhveu Kidney Disease: Estimated GFR < 15 mL/min/1.73m2 Glucose 96 60 - 115 mg/dL [facility] Calcium 9.9 8.4 - 10.2 mg/dL [facility] Bilirubin, Total 0.8 0.0 - 1.0 mg/dL [facility] Aspartate Amino Transferase 27 5 - 37 U/L [facility] Alanine Aminotransferase 20 0 - 40 U/L [facility] Total Protein 9.4(H) 6.5 - 8.0 g/dL [facility] Albumin Level 4.9 3.5 - 5.0 g/dL [facility] Alkaline Phosphatase 102 39 - 117 U/L [facility] Blood Venous blood specimen / Unknown 10/11/2024 12:22 PM EST 10/11/2024 1:28 PM EST us Alfred Magdaleno MD LAB BLOOD ORDERABLES Final Resul t [facility] [address] [place] [phone] * XR Chest 2 Views (10/11/2024 12:02 PM EST) Anatomical Region Laterality Modality Chest Radiographic Allison ging 10/11/2024 12:0 2 PM EST Narrative 10/11/2024 12:45 PM EST ?[facility] ?[address] ?[place] [address] ?XRay Report ? Signed ? Patient: Hamlin Jimenez,Shashi ?MR#: ?? [id number] ? : 1995 ?Acct:[id number] ? Age/Sex: 29 / M ?ADM Date: 01/27/25 ? Loc: HO.HHCX ? Attending Dr: Alfred Magdaleno MD ? Ordering Physician: ALFRED MAGDALENO MD ?? Date of Service: 10/11/24 ?? Procedure(s): XR chest 2V ?? Accession Number(s): [id number] ? cc: ALFRED MAGDALENO MD ? EXAMINATION: [...] DD/ 1202 ? TD/TT: 10/11/24 1215 ? Extension Educator: ? Procedure Note Donrayointerpreter, Image - 10/11/2024 [place] [address] XRay Report Signed Patient: Adolph Blackman#: [id number] : 1995Acct:[id number] Age/Sex: 29 / MADM Date: 10/11/24 Loc: HO.HHCX Attending Dr: Alfred Magdaleno MD Ordering Physician: ALFRED MAGDALENO MD Date of Service: 10/11/24 Procedure(s): XR chest 2V Accession Number(s): [id number] cc: ALFRED MAGDALENO MD EXAMINATION: XR CHEST [...] Mukund Cheatham MD 10/11/2024 12:42 PM EST RP Dictated By: Mukund Cheatham MD Signed By: <Electronically signed by Mukund Cheatham MD in OV> 10/11/24 1242 DD/ 1202 TD/TT: 10/11/24 1215 Extension Educator: Alfred Magdaleno MD IMG XR PROCEDURES Final Result from Last [address] [place] [id number] [facility] [address] [place] [address] [id number] [place] [address] [place] [address] Care Teams Co Director Relationship Specialty Start Date End Date Santa Pablo FNP [address] [place] [phone] PCP - General Family Medicine 03/20/22
--- OUTSIDE RECORDS SUMMARY | 2024-10-22 14:03 | XMS_ITS | Encounter Summary ---
Author Organization [employer] Address [address] [place] [address] Care Team Providers Care Vat House Supervisor Name Role Phone Santa Pablo [facility] Primary Care Provider [phone] Reason for Visit * Reason Onset Date Comments Nurse Triage 10/18/2024 Encounter Details Date Type Department Care Team ([facility] st Contact Info) Description 10/18/2024 Telephone [facility] [address] [place] [address] [facility] [address] [place] [address] Nurse Triage Social History Tobacco Use Types Packs/Day Years [...] encounter Miscellaneous Notes * Telephone Encounter - Pilar Agrawal RN - 10/18/2024 3:18 PM EST called pt to triage, spoke to pt. pt states about 2 weeks duration of decreased appetite and not eating well. pt states eats small amounts but not really interested in eating much. pt states has anxiety concerns and not sure if it is that. pt denies fevers, illness symptoms. vomiting, inability to eat small amounts or other associated symptoms. advised home care: rest, fluids, small frequent feedings, snacks, protein drinks if not hungry, and call back as needed. given appt Friday with PCP at 11:45 for exam. pt understands and agrees with plan. insurance verified. Protocol Used: Eating Problems (Pediatric) Protocol-Based Disposition: See in Office or Video Visit within 2 Weeks Video visit offer not recorded Positive Triage Question: * Caller wants child seen for non-urgent problem * All higher-acuity triage questions were negative Care Advice Discussed: * Avoid Grazing * Reasons To Call Back - You have other questions or concerns * Telephone Encounter - Gladis Nava - 10/18/2024 1:26 PM EST Symptom: Loss of Appetite Outcome: Schedule an appointment to be seen within 3 days Reason: Caller denied all higher acuity questions The caller accepted this outcome. documented in this encounter Plan of Treatment Upcoming Encounters Date Type Department Care Team (Late st Contact Info) Description 01/07/2025 10:30 AM EDT Office Visit [facility] [address] [place] [address] Santa Pablo FNP [address] [place] [address] documented as of this encounter Visit Diagnoses Not on filedocumented in this encounter Care Teams Vat House Supervisor Relationship Specialty Start Date End Date Santa Pablo FNP [address] [place] [address] PCP - General Family Medicine 03/20/22 documented as of this encounter
--- OUTSIDE RECORDS SUMMARY | 2024-10-22 14:03 | XMS_ITS | Encounter Summary ---
Author Organization [employer] Address [address] [facility] [address] [place] [address] Care Team Providers Care Mechanical Test Technician Name Role Phone Santa Pablo [facility] Primary Care Provider [phone] Reason for Visit * Reason Comments Anxiety Shortness of Breath Encounter Details Date Type Department Care Team ([facility] st Contact Info) Description 10/11/2024 9:40 AM EST Office Visit [facility] [address] [place] [address] Alfred Magdaleno MD [address] [place] [address] Anxiety (Primary Dx); Dyspnea, unspecified type; Elevated [...] adult. HPI Shashi was last seen at [facility] 02/04/2022. He came to [facility] today because of 1 year h/o SOB at rest and on exertion, anxiety. No fever, cough, chest pain, n/v/d. Also wants blood glucose checked. Lives with siste here and also stays in assisted in [facility]. Not employed. Smokes 1 cigarette/day several days/week. [...] orders for this visit: Sydnee Castillo from [facility] met with Shashi in exam room. [...] Description 01/07/2025 10:30 AM EDT Office Visit [facility] [address] [place], [place] [phone] [facility] [address] [place] [address] documented as of this encounter Procedures Procedure [...] B12 (10/11/2024 12:22 PM EST) Pathologist [facility] Vitamin B12 380 200 - 900 pg/mL [facility] Comment:NORMAL 200-900 PG/ML INDETERMINATE 160-199 PG/ML DEFICIENT < 160 PG/ML Blood Venous blood specimen / Unknown 10/11/2024 12:22 PM EST 10/11/2024 1:28 PM EST us Alfred Magdaleno MD LAB BLOOD ORDERABLES Final Resul t Performing Organization Address [facility] de Phone Number [facility] [address] [place] [phone] * TSH with Reflex to Free T4 (10/11/2024 12:22 PM EST) Pathologist [facility] TSH reflex Free T4 1.15 0.32 - 4.0 uIU/mL [facility] Blood Venous blood specimen / Unknown 10/11/2024 12:22 PM EST 10/11/2024 1:28 PM EST us Alfred Magdaleno MD LAB BLOOD ORDERABLES Final Resul t Performing Organization Address [facility] Co de Phone Number [facility] [address] [place] [phone] * Hemoglobin A1c (10/11/2024 12:22 PM EST) Pathologist [facility] Hemoglobin A1c 5.7 <6.0 % [facility] Comment:Hemoglobin A1C Refer ence Range Adults: 4.8 - 6.0 % Non diabetic: < 6.0 % Goal: < 7.0 %Additional Action Suggested: > 8.0 %Note: Hemoglobin A1c results are invalid for patients with abnormal amounts of HbF. Blood transfusions may impact the HbA1c concentration in the patient sample. Estimated Average Glucose 117 mg/dL [facility] Comment:eAG = Estimated ave rage glucose which is %A1C expressed asaverage glucose, using the formula of the Z0A-FujnecxIexrzfj Glucose study (ADAG), Diabetes Care, Vol.31,#8,Apr. 2007 Blood Venous blood specimen / Unknown 10/11/2024 12:22 PM EST 10/11/2024 1:28 PM EST us Alfred Magdaleno MD LAB BLOOD ORDERABLES Final Resul t [facility] [address] [place] [phone] * (ABNORMAL) Comprehensive Metabolic Panel (10/11/2024 12:22 PM EST) Sodium 137 135 - 145 mmol/L [facility] Potassium 3.8 3.3 - 5.1 mmol/L [facility] Chloride 104 96 - 108 mmol/L [facility] Carbon Dioxide 25 22 - 29 mmol/L [facility] Anion Gap 12 12 - 20 [facility] Urea Nitrogen (BUN) 14 9 - 16 mg/dL [facility] Creatinine, Serum 1.04 0.5 - 1.4 mg/dL [facility] Estimated Glomerular Filt Rate >60 [facility] Comment:Chronic Kidney Disea se: Estimated GFR < 60 mL/min/1.30d1[place] Kidney Disease: Estimated GFR < 15 mL/min/1.73m2 Glucose 96 60 - 115 mg/dL [facility] Calcium 9.9 8.4 - 10.2 mg/dL [facility] Bilirubin, Total 0.8 0.0 - 1.0 mg/dL [facility] Aspartate Amino Transferase 27 5 - 37 U/L [facility] Alanine Aminotransferase 20 0 - 40 U/L [facility] Total Protein 9.4(H) 6.5 - 8.0 g/dL [facility] Albumin Level 4.9 3.5 - 5.0 g/dL [facility] Alkaline Phosphatase 102 39 - 117 U/L [facility] Blood Venous blood specimen / Unknown 10/11/2024 12:22 PM EST 10/11/2024 1:28 PM EST us Alfred Magdaleno MD LAB BLOOD ORDERABLES Final Resul t [facility] [address] [place] [phone] [phone] * (ABNORMAL) CBC auto differential (10/11/2024 12:22 PM EST) White Blood Count 13.8(H) 4.8 - 10.8 X10*3/uL [facility] Red Blood Count 5.46 4.60 - 5.80 X10*6/uL [facility] Hemoglobin 15.9 14.0 - 18.0 g/dl [facility] Hematocrit 47.8 42.0 - 52.0 % [facility] Mean Corpuscular Volume 87.5 80.0 - 98.0 fL [facility] Mean Corpuscular Hemoglobin 29.1 27.0 - 33.0 pg [facility] Mean Corpuscular HGB Conc 33.3 31.0 - 36.0 g/dl [facility] Red Cell Distribution Width 12.8 11.0 - 16.0 % [facility] Platelet Count 351 160 - 400 X10*3/uL [facility] Mean Platelet Volume 10.5 9.4 - 12.4 fL [facility] Neutrophils Percent Auto 82.7(H) 45 - 73 % [facility] Imm Gran Pct Auto 0.4 0.0 - 0.4 % [facility] Lymphocytes Percent Auto 11.4(L) 20 - 40 % [facility] Monocytes Percent Auto 5.1 2 - 11 % [facility] Eosinophils Percent Auto 0.1 0 - 4 % [facility] Basophils Percent Auto 0.3 0 - 2 % [facility] NRBC Pct Auto 0.0 0.0 - 0.2 /100WBC [facility] Neutrophils Absolute Auto 11.4(H) 2.0 - 8.3 x10*3/uL [facility] Imm Gran Abs Auto 0.06(H) 0.00 - 0.03 X10*3/uL [facility] Lymphocytes Absolute Auto 1.6 1.2 - 4.9 X10*3/uL [facility] Monocytes Absolute Auto 0.7 0.1 - 1.2 X10*3/uL [facility] Eosinophils Absolute Auto 0.0 0.0 - 0.4 X10*3/uL [facility] Basophils Absolute Auto 0.0 0.0 - 0.2 X10*3/uL [facility] NRBC Abs Auto 0.000 0.0 - 0.012 X10*3/uL [facility] Blood Venous blood specimen / Unknown 10/11/2024 12:22 PM EST 10/11/2024 1:28 PM EST us Alfred Magdaleno MD LAB BLOOD ORDERABLES Final Resul t [facility] [address] [place] [address] [phone] * XR Chest 2 Views (10/11/2024 12:02 PM EST) Anatomical Region Laterality Modality Chest Radiographic Allison ging 10/11/2024 12:0 2 PM EST Narrative 10/11/2024 12:45 PM EST ?[facility] ?[address] ?[place] [address] ?XRay Report ? Signed ? Patient: Boubacar Gaona,Shashi ?MR#: ?? [id number] ? : 1995 ?Acct:[id number] ? Age/Sex: 29 / M ?ADM Date: 01/27/25 ? Loc: HO.HHCX ? Attending Dr: Alfred Magdaleno MD ? Ordering Physician: ALFRED MAGDALENO MD ?? Date of Service: 10/11/24 ?? Procedure(s): XR chest 2V ?? Accession Number(s): [id number] ? cc: ALFRED MAGDALENO MD ? EXAMINATION: [...] DD/ 1202 ? TD/TT: 10/11/24 1215 ? Olericulture Professor: ? Procedure Note Michelle Coombs - 10/11/[address] [address] XRay Report Signed Patient: Adolph Blackman#: [id number] : 1995Acct:[id number] Age/Sex: 29 / MADM Date: 10/11/24 Loc: HO.HHCX Attending Dr: Alfred Magdaleno MD Ordering Physician: ALFRED MAGDALENO MD Date of Service: 10/11/24 Procedure(s): XR chest 2V Accession Number(s): [id number] cc: ALFRED MAGDALENO MD EXAMINATION: XR CHEST [...] 10/11/24 1242 DD/ 1202 TD/TT: 10/11/24 1215 Olericulture Professor: Alfred Magdaleno MD IMG XR PROCEDURES Final Result documented in this encounter Visit Diagnoses Diagnosis Anxiety- Primary Anxiety state, unspecified Dyspnea, unspecified type Elevated blood pressure reading in office without diagnosis of hypertension documented in this encounter Care Teams Mechanical Test Technician Relationship Specialty Start Date End Date Santa Pablo FNP [address] [place] [phone] PCP - General Family Medicine 03/20/22 documented as of this encounter
[2024-10-22 16:23] LABS: MANUAL DIFF FLAG NO
[2024-10-22 16:38] LABS: Basophils Percent Auto 0.4 % (0-2); Eosinophils Absolute Auto 0.1 X10*3/uL (0.0-0.4); Eosinophils Percent Auto 0.9 % (0-4); Hematocrit 43.4 % (42.0-52.0); Hemoglobin 14.3 g/dl (14.0-18.0); Imm Gran Abs Auto 0.03 X10*3/uL (0.00-0.03); Imm Gran Pct Auto 0.4 % (0.0-0.4); Lymphocytes Absolute Auto 1.5 X10*3/uL (1.2-4.9); Lymphocytes Percent Auto 21.4 % (20-40); Mean Corpuscular HGB Conc 32.9 g/dl (31.0-36.0); Mean Corpuscular Hemoglobin 28.9 pg (27.0-33.0); Mean Corpuscular Volume 87.7 fL (80.0-98.0); Mean Platelet Volume 11.2 fL (9.4-12.4); Monocytes Absolute Auto 0.5 X10*3/uL (0.1-1.2); Neutrophils Absolute Auto 4.9 x10*3/uL (2.0-8.3); Neutrophils Percent Auto 69.9 % (45-73); Platelet Count 282 X10*3/uL (160-400); Red Blood Count 4.95 X10*6/uL (4.60-5.80); Red Cell Distribution Width 12.9 % (11.0-16.0)
[2024-10-22 16:51] LABS: Alanine Aminotransferase 15 U/L (0-40); Albumin Level 4.5 g/dL (3.5-5.0); Alkaline Phosphatase 73 U/L (39-117); Anion Gap 14 (12-20); Aspartate Amino Transferase 23 U/L (5-37); Bilirubin Total 0.5 mg/dL (0.0-1.0); Blood Urea Nitrogen 8 mg/dL (9-16); Calcium 9.6 mg/dL (8.4-10.2); Carbon Dioxide 26 mmol/L (22-29); Chloride 105 mmol/L (96-108); Estimated Glomerular Filt Rate > 60; Glucose Random 93 mg/dL (60-115); Potassium 4.1 mmol/L (3.3-5.1); Sodium 141 mmol/L (135-145); Total Protein 8.2 g/dL (6.5-8.0)
[2024-10-23 08:36] LABS: Syphilis Screen Nonreactive (Nonreactive)
[2024-10-23 08:37] LABS: HBc Num1 0.13 S/CO (0.00-0.79); HBsAGNum1 0.39 S/CO (0.00-0.99); HIV AB/AG Nonreactive (Nonreactive); HIV Num 1 0.06 S/CO (0.00-0.99); Hepatitis A Antibody IgM 0.23 Index (0-0.79); Hepatitis B Core Antibody Nonreactive (Nonreactive); Hepatitis B Surface Antigen Negative (Negative); ~HepC Num1 0.08 S/CO (0.00-0.79); ~Hepatitis A Antibody IgM Nonreactive (Nonreactive); ~Hepatitis B Surface Antibody REACTIVE (Nonreactive); ~Hepatitis C Antibody Nonreactive (Nonreactive)
== END 2024-10-22 13:40 | disposition home or self-care (01) ==
LOC: HO.HHCL 13:39
PROVIDERS: Visit Provider Registered Nurse
DX: R63.0 Anorexia (principal); Z11.3 Encounter for screening for infections with a predominantly sexual mode of transmission
CPT/HCPCS: 36415; 80053; 85025; 86704; 86706; 86709; 86780; 86803; 87340; 87389